=== PATIENT | female | born 1980 ===

== ENCOUNTER 2017-08-27 15:06 | Emergency (ER) | payer OTHER, BC ==
[2017-08-27 15:12] VITALS: BP 129/76; PULSE 73; RESP 16; TEMP 97; O2SAT 100
[2017-08-27] MEDS ORDERED: Sodium Chloride 0.9% 1,000 ML IV STA (15:50)
[2017-08-27 16:22] LABS: BASO # 0.1 K/uL (0.0-0.2); BASO % 0.7 % (0.0-2.0); EOS # 0.1 K/uL (0.0-0.7); EOS % 1.2 % (0.0-4.0); HEMATOCRIT 38.2 % (34.0-47.0); LYMPH # 1.7 K/uL (1.0-4.3); LYMPH % 21.9 % (20.0-40.0); MEAN CELL VOLUME 91.7 fl (81.0-99.0); MEAN CORPUSCULAR HEMOGLOBIN 31.3 pg (27.0-31.0); MEAN CORPUSCULAR HGB CONC 34.1 g/dL (33.0-37.0); MEAN PLATELET VOLUME 9.7 fl (7.2-11.7); MONO # 0.9 K/uL (0.0-0.8); NEUT # 4.9 K/uL (1.8-7.0); NEUT % 64.2 % (50.0-75.0); NRBC % 0.1 % (0.0-0.0); RED CELL DISTRIBUTION WIDTH 13.5 % (11.5-14.5); WHITE BLOOD COUNT 7.6 K/uL (4.8-10.8)
[2017-08-27 16:31] LABS: ALB/GLOB RATIO 1.3 (1.0-2.1); ALKALINE PHOSPHATASE 62 U/L (38-126); ALT/SGPT 33 U/L (9-52); AST/SGOT 19 U/L (14-36); BILIRUBIN,TOTAL 0.3 mg/dl (0.2-1.3); BLOOD UREA NITROGEN 20 mg/dl (7-17); CALCIUM 9.1 mg/dL (8.4-10.2); CARBON DIOXIDE 25 mmol/L (22-30); CHLORIDE 105 mmol/L (98-107); GFR AFRICAN-AMERICAN > 60; GLUCOSE,RANDOM 80 mg/dL (65-105); LIPASE 70 U/L (23-300); POTASSIUM 4.1 MMOL/L (3.6-5.0); SODIUM 141 mmol/l (132-148); TOTAL PROTEIN 7.7 G/DL (6.3-8.2)
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
[2017-08-27 17:23] LABS: URINE BILIRUBIN NEGATIVE (NEGATIVE); URINE COLOR YELLOW (YELLOW); URINE GLUCOSE (UA) NEG (Normal); URINE KETONE NEGATIVE (NEGATIVE); URINE PROTEIN NEGATIVE (NEGATIVE); URINE UROBILINOGEN 0.2-1.0 mg/dL (0.2-1.0)
[2017-08-27 17:34] LABS: RBC URINE 5 /hpf (0-3); URINE BLOOD TRACE (NEGATIVE); URINE LEUKOCYTE ESTERASE SMALL Leu/uL (Negative); WBC URINE 8 /hpf (0-5)
[2017-08-27 17:35] LABS: URINE BACTERIA RARE (<OCC)
--- NOTE | 2017-08-27 18:07 | RAD ---
PROCEDURE: Radiographs of the Lumbar Spine. HISTORY: pain COMPARISON: No prior. FINDINGS: BONES: No acute compression fractures no retropulsed fragments. Vertebral bodies exhibit normal stature. Vertebral bodies and facets normally aligned. DISC SPACES: There is some very minor posterior disc space narrowing at the L5-S1 level however the remaining disc space heights are maintained. Facet joints slightly hypertrophic L5-S1 and to a lesser degree L4-L5 levels. OTHER FINDINGS: None. IMPRESSION: No acute fractures.
--- NOTE | 2017-08-27 18:08 | RAD ---
HISTORY: pain COMPARISON: No prior. FINDINGS: BONES: Alignment maintained. No fracture. DISC SPACES: Disc space heights are relatively maintained. Minor multilevel endplate eburnation and small marginal anterolateral osteophyte formation. SOFT TISSUES: Paraspinal soft tissues appear grossly unremarkable. OTHER FINDINGS: None. IMPRESSION: No acute fractures. Very minor multilevel degenerative spondylosis.
--- NOTE | 2017-08-27 18:11 | RAD ---
PROCEDURE: Cervical spine dated 08/27/2017. Lexx. Three standard views of the cervical spine performed. Note that the examination is limited due to obscuration of the odontoid by overlying incisor teeth and occiput in the open-mouth projection. HISTORY: Pain. COMPARISON: None. FINDINGS: BONES: The current study reveals no acute fracture within limitation of the exam. No evidence of malalignment DISC SPACES: Normal. SOFT TISSUES: Normal. No prevertebral soft tissue swelling. OTHER FINDINGS: None. IMPRESSION: Limited study demonstrating no obvious acute displaced fracture nor dislocation.
--- NOTE | 2017-08-28 08:59 | CARD ---
APPROVED REPORT EKG Measurement Heart [id number] <Conclusion> Normal sinus rhythm Right superior axis deviation Pulmonary disease pattern Abnormal ECG
== END 2017-08-27 19:00 | disposition home or self-care (01) ==
LOC: H.ER 15:06
DX: M54.9 Dorsalgia, unspecified (principal); M54.2 Cervicalgia; Y92.410 Unspecified street and highway as the place of occurrence of the external cause; E03.9 Hypothyroidism, unspecified
CPT/HCPCS: 72040; 72070; 72100; 80053; 81003; 81025; 83690; 85025; 93005; 96361; 96374; 96375; 99284; J1885; J2405; J7040